=== PATIENT | female | born 1990 | race Caucasian/White ===

== ENCOUNTER 2016-06-14 08:10 | Emergency (ER) | payer OTHER ==
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
[2016-06-14 08:34] VITALS: RESP 16; TEMP 97.3
[2016-06-14 08:40] LABS: ANION GAP 12 mEq/L (8-16); CALCIUM 10.2 mg/dL (8.5-10.4); CARBON DIOXIDE 29 mEq/l (22-31); CHLORIDE 103 mEq/L (97-110); CREATININE 0.7 mg/dL (0.6-1.0); GLOMERULAR FILTRATION RATE > 60; GLUCOSE 72 mg/dL (70-100); POTASSIUM 4.6 mEq/L (3.5-5.2); SODIUM 144 mEq/L (134-144)
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
[2016-06-14 09:18] VITALS: BP 147/72; PULSE 88; O2SAT 98
== END 2016-06-14 09:23 | disposition home or self-care (01) ==
DX: G40.909 Epilepsy, unspecified, not intractable, without status epilepticus (principal); S29.012A Strain of muscle and tendon of back wall of thorax, initial encounter; V49.9XXA Car occupant (driver) (passenger) injured in unspecified traffic accident, initial encounter; Y92.410 Unspecified street and highway as the place of occurrence of the external cause; Y99.8 Other external cause status; Y93.89 Activity, other specified